=== PATIENT | female | born 1965 | race Two or more races ===

== ENCOUNTER 2020-03-21 11:35 | Day surgery (SDC) | payer OTHER ==
[2020-03-21] MEDS ORDERED: KETO10TA2 PO (14:27)
== END 2020-03-21 21:05 | disposition home or self-care (01) ==
LOC: CIR.AMB 11:35
PROVIDERS: ATTEND Obstetrics & Gynecology
DX: N84.0 Polyp of corpus uteri (principal); Z20.828 Contact with and (suspected) exposure to other viral communicable diseases